=== PATIENT | male | born 1945 | race Two or more races ===

== ENCOUNTER → 2020-07-19 | Emergency (ER) | payer OTHER ==
[~2020-07-19] VITALS: Ht 177.8 cm; Wt 90.7 kg
[~2020-07-19] MED LIST: DIURETICO; GLUCOPHAGE XR500 MG PO; MICRO-K8 MEQ PO; ZYLOPRIM300 MG PO
== END | disposition left against medical advice (07) ==
LOC: ER 14:31
DX: Z53.20 Procedure and treatment not carried out because of patient's decision for unspecified reasons (principal)